=== PATIENT | female | born 1970 | race Caucasian/White ===

== ENCOUNTER → 2018-09-08 | Outpatient (CLI) | payer OTHER ==
--- NOTE | 2018-09-08 09:37 | XR ---
EXAMINATION TYPE: XR shoulder complete LT DATE OF EXAM: 09/08/2018 COMPARISON: NONE HISTORY: Pain TECHNIQUE: Three views are submitted. FINDINGS: The osseous structures are intact. There is no acute fracture or dislocation. Arthropathy of the AC joint with a small spur extending from the acromium. Mild hypertrophic change involving the greater t uberosity. IMPRESSION: 1. AC joint arthropathy. If there is concern for rotator cuff disease correlate with MRI
== END | disposition home or self-care (01) ==
LOC: RADXRMAIN 08:50
PROVIDERS: ATTEND Family Medicine
DX: M19.012 Primary osteoarthritis, left shoulder (principal)